=== PATIENT | female | born 1990 | race American Indian/Alaskan Native ===

== ENCOUNTER 2018-07-27 21:49 | Emergency (ER) | payer MEDICAID, OTHER ==
--- NOTE | 2018-07-27 22:02 | Emergency Department Report ---
Blank Doc - Documentation Documentation: 28 y o female presents to ed vag bleed started 06/06 resolved then she s tarted having vaginal bleed, heavy with pelvic cramping and pain unsure if . pads daily unsure of quantity ua,upt, cbc [facility] eval
[2018-07-27 22:16] LABS: Basophils # (Auto) 0.1 K/mm3 (0.0-0.1); Basophils % (Auto) 1.3 % (0.0-1.8); Eosinophils # (Auto) 0.1 K/mm3 (0.0-0.4); Eosinophils % (Auto) 1.6 % (0.0-4.3); Hematocrit 36.7 % (30.3-42.9); Hemoglobin 12.3 gm/dl (10.1-14.3); Lymphocytes # (Auto) 2.5 K/mm3 (1.2-5.4); Lymphocytes % (Auto) 44.2 % (13.4-35.0); Mean Corpuscular HGB Conc 33 % (30-34); Mean Corpuscular Volume 90 fl (79-97); Monocytes # (Auto) 0.6 K/mm3 (0.0-0.8); Monocytes % (Auto) 11.2 % (0.0-7.3); Platelet Count 357 K/mm3 (140-440); Red Blood Count 4.06 M/mm3 (3.65-5.03); Red Cell Distribution Width 13.4 % (13.2-15.2)
[2018-07-27 22:43] LABS: Bacteria,Urine 1+ /HPF (Negative); Bilirubin,Urine NEG (Negative); Blood,Urine LG (Negative); Color,Urine Yellow (Yellow); Mucus,Urine 3+ /HPF; Urobilinogen,Urine < 2.0 mg/dL (<2.0)
[2018-07-27 22:44] LABS: Calcium Oxalate Crystals,Urine FEW
--- NOTE | 2018-07-28 01:27 | Emergency Department Report ---
ED Female HPI - General Chief complaint: Vaginal Bleeding Stated complaint: ABD PAIN BLEEDING FOR 10 DAYS Time Seen by Provider: 07/27/18 21:55 Source: patient Mode of arrival: Ambulatory Limitations: No Limitations - History of Present Illness Initial comments: 28-year-old -[place] female comes in reporting abdominal cramps and vaginal bleeding 10 days. Patient states her last normal period was 06/06/2018. Patient is 1 para 0 with one miscarriage. Patient is sexually active with males unprotective one partner last 6 months. Patient denies any nausea vomiting but admits to abdominal cramps with vaginal bleeding. Patient reports no past medical history currently takes no medications on a daily basis and has no known drug allergies. MD Complaint: vaginal bleeding, pelvic pain -: days(s) (10) Severity scale (0 -10): 8 Quality: cramping Consistency: intermittent Improves with: none Worsens with: none Are you Now?: No Last Menstrual Period: 06/06/18 EDC: 03/13/19 Associated Symptoms: vaginal bleeding, abdominal pain - Related Data Sexually active: Yes (men unprotected one partner) : 1 A: 1 (miscarriage) Allergies Allergy/AdvReac Type Severity Reaction Status Date / Time No Known Allergies Allergy Unverified 07/27/18 21:58 ED Review of Systems ROS: Stated complaint: ABD PAIN BLEEDING FOR 10 DAYS Other details as noted in HPI Comment: All other systems reviewed and negative Constitutional: denies: chills, fever Gastrointestinal: abdominal pain ED Past Medical Hx - Past Medical History Previous Medical History?: No - Surgical History Past Surgical History?: No - Social History Smoking Status: Current Every Day Smoker Substance Use Type: Alcohol, Marijuana ED Physical Exam - General Limitations: No Limitations General appearance: alert, in no apparent distress - Head Head exam: Present: atraumatic, normocephalic - Eye Eye exam: Present: EOMI - ENT ENT exam: Present: mucous membranes moist - Neck Neck exam: Present: normal inspection, full ROM - Respiratory Respiratory exam: Present: normal lung sounds bilaterally. Absent: respiratory distress - Cardiovascular Cardiovascular Exam: Present: regular rate, normal rhythm. Absent: systolic murmur, diastolic murmur, rubs, gallop - GI/Abdominal GI/Abdominal exam: Present: soft, normal bowel sounds - Back Exam Back exam: Present: normal inspection - Neurological Exam Neurological exam: Present: alert, oriented X3 - Psychiatric Psychiatric exam: Present: normal affect, normal mood ED Course Vital Signs 07/27/18 07/27/18 07/28/18 21:53 21:55 02:34 Temperature 98.0 F 98 F 97.6 F Pulse Rate 71 73 68 Respiratory 18 18 18 Rate Blood Pressure 118/60 118/60 Blood Pressure 118/74 [Right] O2 Sat by Pulse 99 99 100 Oximetry ED Medical Decision Making - Lab Data Result diagrams: 07/27/18 22:06 - Medical Decision Making Patient has been evaluated by this provider in [facility]. ECG shows 376.9. Ultrasound OB less than 14 weeks with transvaginal has been ordered. RhoGAM assessment has been ordered. CBC urinalysis has been ordered. Critical care attestation.: If time is entered above; I have spent that time in minutes in the direct care of this critically ill patient, excluding procedure time. ED Disposition Clinical Impression: Threatened miscarriage in early Disposition: DC-01 TO HOME OR SELFCARE Is pt being admited?: No Does the pt Need Aspirin: No Condition: Stable Instructions: Threatened Miscarriage (ED) Additional Instructions: Please return back to the emergency room or [facility] in 2 days to have a repeat hCG. At that time he may need a repeat ultrasound. Only pain medication use can have its Tylenol. Referrals: DIAZ RAIN MD [Primary Care Provider] - 3-5 Days
--- NOTE | 2018-07-28 02:15 | Ultrasound Report ---
PROCEDURE: US OB <= 14 WEEKS FETUS TECHNIQUE: Real-time transabdominal and transvaginal sonography of the uterus, placenta, amniotic fl uid, adnexa, and fetus was performed with image documentation. Measurements were obtained to determin e age/size. M-mode Doppler was used to document heartbeat. ADDITIONAL GESTATION: None. HISTORY: +HCG w/vag bleeding and cramps COMPARISONS: None . FINDINGS: The uterus size is 7.4 x 3.2 x 4.3 cm. There is no evidence of a gestational sac within the uterus. T he endometrial pattern is normal. The right ovary size is 3.1 x 1.6 x 2.1 cm. The right ovary has a normal echogenicity. The left ovary size is 2.6 x 1.4 x 2.2 cm. There is a small follicular cyst on the left ovary. There is area of mix ed echogenicity adjacent to the left ovary in the left adnexal region measuring up to 3.3 cm. This co uld represent atypical cyst on the left ovary/adnexal region. There is slight fluid in the lower pelv is. The findings may indicate multiple etiologies including early and failure. Ectopi c is not entirely excluded on the basis of this single study. This patient should have foll ow-up examinations which could include serial beta-hCG levels and repeat ultrasound. IMPRESSION: There is no evidence of an intrauterine on this study. Cystic areas in the left ovary/adnex al region are noted. Very slight fluid in the lower pelvis. The findings may indicate multiple etiologies including early or failure. Ectopic is not excluded on the basis of this single study. Follow-up examinations will be needed a s discussed above in detail. This document is electronically signed by Ursula Posadas DO., July 28 2018 02:13:22 AM ET
[2018-07-28 02:35] VITALS: BP 118/74
== END 2018-07-28 02:36 | disposition home or self-care (01) ==
LOC: ED 21:49
DX: N93.9 Abnormal uterine and vaginal bleeding, unspecified (principal); F17.200 Nicotine dependence, unspecified, uncomplicated
CPT/HCPCS: 36415; 76801; 76817; 81001; 84702; 85025; 86900; 86901; 99284

== ENCOUNTER 2018-07-29 05:46 | Emergency (ER) | payer MEDICAID, OTHER ==
[2018-07-29 06:02] VITALS: BP 104/63
--- NOTE | 2018-07-29 08:59 | Emergency Department Report ---
ED Recheck HPI - General Chief Complaint: Recheck/Abnormal Lab/Rx Stated Complaint: REPEAT LABS Time Seen by Provider: 07/29/18 08:43 Source: patient Mode of arrival: Ambulatory Limitations: No Limitations - History of Present Illness Initial Comments: 28 after [place] female see her for repeat hCG. Patient was seen by me on 07/27/2018 when we check for hCG was a level of 351 today she is here to have a repeat serial hCG. Patient reports she still having some mild cramping about. To 4 out of 10. She's taken Tylenol yesterday not need any pain since pain medication since then. Patient has not followed up with [facility]. Patient reports she is still spotting which is on toilet paper she has not filled any pads. Patient is 4 with one miscarriage. MD Complaint: abnormal lab -: days(s) (3) Associated Symptoms: other (pelvic cramping) - Related Data Allergies Allergy/AdvReac Type Severity Reaction Status Date / Time No Known Allergies Allergy Unverified 07/27/18 21:58 ED Review of Systems ROS: Stated complaint: REPEAT LABS Other details as noted in HPI ED Past Medical Hx - Past Medical History Previous Medical History?: Yes - Surgical History Past Surgical History?: No - Social History Smoking Status: Current Every Day Smoker Substance Use Type: Alcohol ED Physical Exam - General Limitations: No Limitations General appearance: alert - Head Head exam: Present: atraumatic, normocephalic - Eye Eye exam: Present: EOMI - ENT ENT exam: Present: mucous membranes moist - Neck Neck exam: Present: normal inspection, full ROM - Neurological Exam Neurological exam: Present: alert, oriented X3 - Psychiatric Psychiatric exam: Present: normal affect, normal mood - Skin Skin exam: Present: warm, dry, intact, normal color. Absent: rash ED Course Vital Signs 07/29/18 05:55 Temperature 98.1 F Pulse Rate 64 Respiratory 18 Rate Blood Pressure 104/63 O2 Sat by Pulse 99 Oximetry ED Recheck MDM - Medical Decision Making Patient has been evaluated by this provider fast track. Discussed the patient that her hCG level has not increased but has slightly decreased. Also discussed the patient that she needs to repeat hCG in 2-3 days. Patient verbalized understanding. Discussed the patient continue with Tylenol as needed for pain management. Critical care attestation.: If time is entered above; I have spent that time in minutes in the direct care of this critically ill patient, excluding procedure time. ED Disposition Clinical Impression: Threatened miscarriage in early Disposition: DC-01 TO HOME OR SELFCARE Is pt being admited?: No Does the pt Need Aspirin: No Condition: Stable Instructions: Threatened Miscarriage (ED) Additional Instructions: Please return back N2 to 3 days to have a repeat serial hCG. Continue with Tylenol as needed for cramping. Referrals: DIAZ RAIN MD [Primary Care Provider] - 3-5 Days
== END 2018-07-29 09:37 | disposition home or self-care (01) ==
LOC: ED 05:46
DX: O20.0 Threatened abortion (principal); O99.331 Smoking (tobacco) complicating pregnancy, first trimester; F17.200 Nicotine dependence, unspecified, uncomplicated; Z3A.01 Less than 8 weeks gestation of pregnancy
CPT/HCPCS: 36415; 84702